=== PATIENT | female | born 1970 | race Caucasian/White ===

== ENCOUNTER 2019-10-08 00:42 | Emergency (ER) | payer BC ==
[~2019-10-08] VITALS: Ht 157.5 cm; Wt 74.4 kg
[2019-10-08 01:00] VITALS: BP_SYST 129
--- NOTE | 2019-10-08 01:00 | NUR ---
Patient triaged and placed in waiting room. VSS and patient appears in no acute distress at this time. Accompanied by self, awaiting available bed, and MD notified of need for MSE.
--- NOTE | 2019-10-08 03:00 | NUR ---
Patient resting quietly. No acute distress noted. Vital signs within normal range.
--- NOTE | 2019-10-08 03:30 | NUR ---
CAlled pt in, no answer
--- NOTE | 2019-10-08 03:30 | NUR ---
Patient left without being seen. No treatment provided. ER aware
== END 2019-10-08 03:30 | disposition left against medical advice (07) ==
LOC: SED 00:42
DX: R00.2 Palpitations (principal); R42 Dizziness and giddiness; Z53.21 Procedure and treatment not carried out due to patient leaving prior to being seen by health care provider

== ENCOUNTER 2023-09-03 15:40 | Emergency (ER) | payer BC ==
[~2023-09-03] VITALS: Ht 157.5 cm; Wt 68.0 kg
[2023-09-03 15:40] VITALS: BP_SYST 135; PULSE 74; RESP 19; TEMP 97.4; O2SAT 100
== END 2023-09-03 17:56 | disposition home or self-care (01) ==
LOC: SED 15:40
DX: S09.90XA Unspecified injury of head, initial encounter (principal); W20.8XXA Other cause of strike by thrown, projected or falling object, initial encounter; Y93.89 Activity, other specified; Y92.89 Other specified places as the place of occurrence of the external cause; Y99.8 Other external cause status
CPT/HCPCS: 99281

== ENCOUNTER 2023-12-18 12:04 | Emergency (ER) | payer BC ==
[~2023-12-18] VITALS: Ht 157.5 cm; Wt 72.6 kg
[2023-12-18 12:05] VITALS: BP_SYST 135; PULSE 103; RESP 18; TEMP 98.3; O2SAT 98
[2023-12-18] MEDS ORDERED: BENZ100C92 PO (13:08)
[2023-12-18] MEDS ORDERED: GUAI100S14 PO (13:08)
[2023-12-18] MEDS ORDERED: LEVA15HF5 INH (13:08)
[2023-12-18 13:22] VITALS: BP_SYST 132; PULSE 84; RESP 18; TEMP 98.3; O2SAT 98
== END 2023-12-18 13:18 | disposition home or self-care (01) ==
LOC: SED 12:04
DX: J40 Bronchitis, not specified as acute or chronic (principal); J02.9 Acute pharyngitis, unspecified; R09.82 Postnasal drip; R05.9 Cough, unspecified; K21.9 Gastro-esophageal reflux disease without esophagitis; F41.9 Anxiety disorder, unspecified; Z98.890 Other specified postprocedural states
CPT/HCPCS: 99283

== ENCOUNTER 2024-03-28 17:28 | Emergency (ER) | payer BC ==
[~2024-03-28] VITALS: Ht 157.5 cm; Wt 74.8 kg
[~2024-03-28 17:28] MED LIST: BENZ100C92 PO; GUAI100S14 PO; LEVA15HF5 INH
[2024-03-28 18:03] VITALS: BP_SYST 144; PULSE 85; RESP 18; TEMP 98.5; O2SAT 98
[2024-03-28 19:14] VITALS: BP_SYST 144; PULSE 85; RESP 18; TEMP 98.5; O2SAT 98
[2024-03-28 19:46] LABS: COVID19 ANTIGEN SOFIA FIA NEGATIVE (NEGATIVE)
[2024-03-28 19:48] LABS: INFLUENZA TYPE A Negative (NEGATIVE); INFLUENZA TYPE B NEGATIVE (NEGATIVE)
[2024-03-28 19:49] LABS: STREPTOCOCCUS A SCREEN (RAPID) NEGATIVE (NEGATIVE)
== END 2024-03-28 19:00 | disposition home or self-care (01) ==
LOC: SED 17:28
DX: K21.9 Gastro-esophageal reflux disease without esophagitis (principal); R13.10 Dysphagia, unspecified; Z20.822 Contact with and (suspected) exposure to COVID-19; F41.9 Anxiety disorder, unspecified; Z79.899 Other long term (current) drug therapy; Z79.2 Long term (current) use of antibiotics
CPT/HCPCS: 36415; 86403; 87081; 99283